=== PATIENT | female | born 1980 | race Caucasian/White ===

== ENCOUNTER → 2017-11-19 10:23 | Outpatient (CLI) | payer OTHER, SELFPAY ==
[2017-11-19 11:46] LABS: Absolute Neutrophil Count 1.8 X10^3/uL (2.0-7.7); Basophil# 0.06 X10^3/uL; Basophil% 1.4 % (0-1); Eosinophil# 0.21 X10^3/uL; Eosinophils% 4.7 % (0-5); Hematocrit 36.4 % (37-47); Hemoglobin 11.2 g/dl (12.0-15.0); Lymphocyte % 40.6 % (19-41); Mean Corp Hgb Conc 30.8 g/gl (32-36); Mean Corpuscular Hgb 24.3 pg (27.0-32.0); Mean Corpuscular Volume 79.1 fL (81-99); Mean Platelet Vol. 9.7 fl (6.2-12.0); Monocyte# 0.59 X10^3/uL; Monocyte% 13.3 % (0-10); Neutrophil # 1.77 X10^3/uL (2.7-7.7); Platelet Count 296 K/mm3 (150-450); RBC Distribution Width CV 15.2 % (11.6-14.6); RBC Distribution Width SD 43.6 fl (35.1-43.9); White Blood Count 4.4 K/mm3 (4.4-11.0)
[2017-11-19 11:48] LABS: POSITIVE COUNT NO; POSITIVE DIFFERENTIAL NO; POSITIVE MORPHOLOGY NO
[2017-11-19 12:23] LABS: Vitamin B12 602 pg/mL (211-911)
[2017-11-19 12:36] LABS: Ferritin 3 ng/mL (8-252); Iron 46 ug/dL (50-170); Thyroid Stim Hormone (TSH) 3.33 uIU/mL (0.358-3.74)
[2017-11-22 16:09] LABS: PROEL- Albumin 3.7 g/dL (2.9-4.4); PROEL- Alpha-1 Globulin 0.2 g/dL (0.0-0.4); PROEL- Alpha-2 Globulin 0.6 g/dL (0.4-1.0); PROEL- Gamma Globulin 1.7 g/dL (0.4-1.8); PROEL- Globulin, Total 3.6 g/dL (2.2-3.9); PROEL- TOTAL PROTEIN 7.3 g/dL (6.0-8.5)
== END ==
PROVIDERS: Family Provider Family Medicine; PCP Family Medicine; Visit Provider Family Medicine
DX: D64.9 Anemia, unspecified (principal)
CPT/HCPCS: 36415; 82607; 82728; 82746; 83540; 84165; 84443; 85025